=== PATIENT | female | born 1985 | race Caucasian/White ===

== ENCOUNTER 2018-02-19 00:59 | Inpatient (IN) | payer MEDICAID, OTHER ==
[2018-02-19] MEDS: SODIUM CHLORIDE 0.9% 1L BAG IV* (01:54)
[2018-02-19 02:16] LABS: ADD MAN DIFF? NO
[2018-02-19 02:22] LABS: BASOPHILS % 0.5 % (0.0-2.0); EOSINOPHILS # 0.1 10^3/ul (0.0-0.5); EOSINOPHILS % 1.4 % (0.0-7.0); HEMATOCRIT 35.4 % (37.0-47.0); HEMOGLOBIN 10.9 g/dl (12.0-16.0); LYMPHOCYTES # 2.8 10^3/ul (0.8-2.9); LYMPHOCYTES % 38.7 % (15.0-51.0); MEAN CORPUSCULAR HEMOGLOBIN 27.2 pg (29.0-33.0); MEAN CORPUSCULAR HGB CONC 30.8 g/dl (32.0-37.0); MEAN CORPUSCULAR VOLUME 88.3 fl (82.0-101.0); MEAN PLATELET VOLUME 8.8 fl (7.4-10.4); MONOCYTE # 0.6 10^3/ul (0.3-0.9); MONOCYTES % 7.8 % (0.0-11.0); NEUTROPHIL # 3.8 10^3/ul (1.6-7.5); NEUTROPHILS % 51.3 % (39.0-77.0); PLATELET COUNT 429 10^3/UL (140-415); RED BLOOD COUNT 4.01 10^6/ul (4.20-5.40); RED CELL DISTRIBUTION WIDTH 12.2 % (11.5-14.5)
[2018-02-19 02:22] LABS: WHITE BLOOD COUNT 7.3 10^3/ul (4.8-10.8)
[2018-02-19] MEDS: ONDANSETRON 4 MG INJ IV (02:25)
[2018-02-19] MEDS: morphine 4 MG/ML VIAL IV (02:25)
[2018-02-19 02:42] LABS: LACTIC ACID 0.7 mmol/L (0.5-2.0)
[2018-02-19 02:42] LABS: PROTIME 12.2 Sec (11.9-14.9)
[2018-02-19 02:43] LABS: ALANINE AMINOTRANSFERASE 18 IU/L (13-69); ALBUMIN 4.1 g/dl (3.3-4.9); ALBUMIN/GLOBULIN RATIO 1.05; ALKALINE PHOSPHATASE 93 IU/L (42-121); ANION GAP 14 (8-16); ASPARTATE AMINO TRANSFERASE 23 IU/L (15-46); BILIRUBIN,INDIRECT 0.2 mg/dl (0-1.1); BILIRUBIN,TOTAL 0.2 mg/dl (0.2-1.3); BLOOD UREA NITROGEN 12 mg/dl (7-20); CALCIUM 8.9 mg/dl (8.4-10.2); CARBON DIOXIDE 29 mmol/L (21-31); CHLORIDE 105 mmol/L (97-110); CREATININE 0.66 mg/dl (0.44-1.00); GLUCOSE 86 mg/dl (70-220); PARTIAL THROMBOPLASTIN TIME 30.1 Sec (25.0-35.0); POTASSIUM 3.8 mmol/L (3.5-5.1); SODIUM 144 mmol/L (135-144)
[2018-02-19 02:53] LABS: ADD UMIC YES; UR ASCORBIC ACID NEGATIVE (NEGATIVE); UR BILIRUBIN (Dip) NEGATIVE (NEGATIVE); UR BLOOD (Dip) 1+ mg/dL (NEGATIVE); UR CLARITY SLIGHTLY CLOUDY (CLEAR); UR COLOR YELLOW (YELLOW); UR GLUCOSE (Dip) NEGATIVE (NEGATIVE); UR KETONES (Dip) NEGATIVE (NEGATIVE); UR LEUKOCYTE ESTERASE (Dip) 3+ Leu/ul (NEGATIVE); UR MUCUS MODERATE /HPF (NONE SEEN); UR NITRITE (Dip) NEGATIVE (NEGATIVE); UR RBC 17 /HPF (0-5); UR SPECIFIC GRAVITY (Dip) 1.026 (1.003-1.030); UR SQUAMOUS EPITHELIAL CELL FEW /HPF (FEW); UR TOTAL PROTEIN (Dip) NEGATIVE (NEGATIVE); UR UROBILINOGEN (Dip) 2+ mg/dL (NEGATIVE); UR WBC 15 /HPF (0-5)
[2018-02-19 02:54] LABS: TROPONIN-I < 0.010 ng/ml (0.000-0.120)
[2018-02-19] MEDS: PIPER-TAZO 3.375 GM IV (PMX) 100 ML IVPB (04:04)
[2018-02-19] MEDS: HYDROmorphONE 1 MG/ML SYG IV (04:04)
[2018-02-19 05:04] LABS: LACTIC ACID 1.4 mmol/L (0.5-2.0)
[2018-02-19 06:23] LABS: LACTIC ACID 0.7 mmol/L (0.5-2.0)
[2018-02-19] MEDS: morphine 2 MG INJ IV (08:49)
[2018-02-19] MEDS ORDERED: HYDROCODONE/APAP (5/325) TAB PO (09:00)
[2018-02-19] MEDS ORDERED: VANCOMYCIN IV PER PHARMACY XX (09:00)
[2018-02-19] MEDS ORDERED: ONDANSETRON 4 MG INJ IV (09:00)
[2018-02-19] MEDS ORDERED: NACL 0.9% 3 ML SYG IV (09:00)
[2018-02-19] MEDS ORDERED: ACETAMINOPHEN 325 MG TAB PO (09:00)
[2018-02-19] MEDS ORDERED: CEFEPIME 1GM/50 ML (PMX) 50 ML IVPB (09:00)
[2018-02-19] MEDS: ENOXAPARIN 40 MG/0.4 ML SYG SC (09:00)
[2018-02-19] MEDS: HYDROCODONE/APAP (5/325) TAB PO ×3 (10:14→23:49)
[2018-02-19] MEDS: VANCOMYCIN 1.75 GM in SOD CHLORIDE 0.9% 500 ML IVPB (12:15)
[2018-02-19] MEDS: VANCOMYCIN 1 GM 250 ML IVPB (22:40)
[2018-02-20 06:02] LABS: ADD MAN DIFF? NO
[2018-02-20 06:14] LABS: BASOPHILS % 0.5 % (0.0-2.0); EOSINOPHILS # 0.1 10^3/ul (0.0-0.5); EOSINOPHILS % 2.5 % (0.0-7.0); HEMATOCRIT 32.9 % (37.0-47.0); HEMOGLOBIN 9.9 g/dl (12.0-16.0); LYMPHOCYTES # 3.7 10^3/ul (0.8-2.9); MEAN CORPUSCULAR HEMOGLOBIN 26.6 pg (29.0-33.0); MEAN CORPUSCULAR HGB CONC 30.1 g/dl (32.0-37.0); MEAN CORPUSCULAR VOLUME 88.4 fl (82.0-101.0); MEAN PLATELET VOLUME 9.2 fl (7.4-10.4); MONOCYTE # 0.4 10^3/ul (0.3-0.9); MONOCYTES % 7.5 % (0.0-11.0); NEUTROPHIL # 1.4 10^3/ul (1.6-7.5); NEUTROPHILS % 24.3 % (39.0-77.0); PLATELET COUNT 358 10^3/UL (140-415); RED BLOOD COUNT 3.72 10^6/ul (4.20-5.40); RED CELL DISTRIBUTION WIDTH 12.6 % (11.5-14.5)
[2018-02-20 06:14] LABS: WHITE BLOOD COUNT 5.6 10^3/ul (4.8-10.8)
[2018-02-20 06:56] LABS: IRON 26 ug/dl (35-150)
[2018-02-20] MEDS ORDERED: PROPOFOL 200 MG INJ (07:00)
[2018-02-20 07:01] LABS: ALANINE AMINOTRANSFERASE 26 IU/L (13-69); ALBUMIN 3.1 g/dl (3.3-4.9); ALKALINE PHOSPHATASE 70 IU/L (42-121); ANION GAP 6 (8-16); ASPARTATE AMINO TRANSFERASE 21 IU/L (15-46); BILIRUBIN,INDIRECT 0.2 mg/dl (0-1.1); BILIRUBIN,TOTAL 0.2 mg/dl (0.2-1.3); BLOOD UREA NITROGEN 12 mg/dl (7-20); CALCIUM 8.2 mg/dl (8.4-10.2); CARBON DIOXIDE 28 mmol/L (21-31); CHLORIDE 111 mmol/L (97-110); CREATININE 0.61 mg/dl (0.44-1.00); GLUCOSE 97 mg/dl (70-220); MAGNESIUM 1.8 mg/dl (1.7-2.5); POTASSIUM 4.2 mmol/L (3.5-5.1); SODIUM 141 mmol/L (135-144); TOTAL PROTEIN 6.2 g/dl (6.1-8.1)
[2018-02-20 07:05] LABS: % IRON SATURATION 7 % SAT (22-52); TOTAL IRON BINDING CAPACITY 357 ug/dl (241-421)
[2018-02-20 07:59] LABS: FERRITIN 7.8 ng/ml (6.2-137.0)
[2018-02-20] MEDS: ENOXAPARIN 40 MG/0.4 ML SYG SC (09:00)
[2018-02-20] MEDS: VANCOMYCIN 1 GM 250 ML IVPB (10:30)
[2018-02-20] MEDS: HYDROCODONE/APAP (5/325) TAB PO ×2 (10:36→22:28)
[2018-02-20] MEDS ORDERED: NAPROXEN 500 MG TAB PO (18:30)
[2018-02-20] MEDS ORDERED: PROPOFOL 20 ML (19:13)
[2018-02-20] MEDS ORDERED: METOCLOPRAMIDE 10 MG INJ (19:13)
[2018-02-20] MEDS ORDERED: ONDANSETRON 4 MG INJ (19:13)
[2018-02-20] MEDS ORDERED: MIDAZOLAM 1 MG/ML 2 ML INJ (19:13)
[2018-02-20] MEDS ORDERED: FENTAnyl 50 MCG/ML VIAL (19:13)
[2018-02-20] MEDS ORDERED: KETOROLAC 30 MG INJ (19:40)
[2018-02-20] MEDS: POLYMYXIN B 500000 UNIT INJ (19:44)
[2018-02-20] MEDS: BACITRACIN 50000 UNITS INJ IRR (19:45)
[2018-02-20] MEDS: POLYMYXIN/BACITRACIN 1L IRRIG IRR (19:45)
[2018-02-20] MEDS ORDERED: ONDANSETRON 4 MG INJ IV ×2 (20:00→20:30)
[2018-02-20] MEDS ORDERED: DIPHENHYDRAMINE 50 MG INJ IV (20:00)
[2018-02-20] MEDS ORDERED: HYDROmorphONE 1 MG/5 ML IV SYRINGE IV ×2 (20:00)
[2018-02-20] MEDS ORDERED: ZOLPIDEM 5 MG TAB PO (20:30)
[2018-02-20] MEDS: HYDROmorphONE 1 MG/5 ML IV SYRINGE IV (20:47)
[2018-02-20] MEDS: MEPERIDINE 25 MG INJ IV (20:47)
[2018-02-20] MEDS: FAMOTIDINE 20 MG INJ IV (22:24)
[2018-02-20] MEDS: FERROUS SULFATE (EC) 325 MG TAB PO (22:25)
[2018-02-20] MEDS: GABAPENTIN 100 MG CAP PO (22:25)
[2018-02-20] MEDS: KETOROLAC 30 MG INJ IV (22:29)
[2018-02-20 22:41] LABS: VANCOMYCIN,TROUGH 8.1 ug/ml (10.0-20.0)
[2018-02-21] MEDS: VANCOMYCIN 1.5 GM in SOD CHLORIDE 0.9% 250 ML IVPB ×2 (01:37→12:10)
[2018-02-21 06:15] LABS: ADD MAN DIFF? NO
[2018-02-21 06:18] LABS: BASOPHILS % 0.4 % (0.0-2.0); EOSINOPHILS # 0.2 10^3/ul (0.0-0.5); EOSINOPHILS % 2.4 % (0.0-7.0); HEMATOCRIT 31.4 % (37.0-47.0); HEMOGLOBIN 9.6 g/dl (12.0-16.0); LYMPHOCYTES # 3.7 10^3/ul (0.8-2.9); LYMPHOCYTES % 54.6 % (15.0-51.0); MEAN CORPUSCULAR HGB CONC 30.6 g/dl (32.0-37.0); MEAN CORPUSCULAR VOLUME 88.5 fl (82.0-101.0); MEAN PLATELET VOLUME 9.2 fl (7.4-10.4); MONOCYTE # 0.5 10^3/ul (0.3-0.9); MONOCYTES % 6.8 % (0.0-11.0); NEUTROPHIL # 2.4 10^3/ul (1.6-7.5); NEUTROPHILS % 35.5 % (39.0-77.0); PLATELET COUNT 376 10^3/UL (140-415); RED BLOOD COUNT 3.55 10^6/ul (4.20-5.40); RED CELL DISTRIBUTION WIDTH 12.3 % (11.5-14.5)
[2018-02-21 06:18] LABS: WHITE BLOOD COUNT 6.8 10^3/ul (4.8-10.8)
[2018-02-21 06:35] LABS: ANION GAP 7 (8-16); BLOOD UREA NITROGEN 12 mg/dl (7-20); CALCIUM 8.1 mg/dl (8.4-10.2); CARBON DIOXIDE 29 mmol/L (21-31); CHLORIDE 108 mmol/L (97-110); CREATININE 0.64 mg/dl (0.44-1.00); GLUCOSE 114 mg/dl (70-220); MAGNESIUM 1.9 mg/dl (1.7-2.5); PHOSPHORUS 4.4 mg/dl (2.5-4.9); POTASSIUM 3.9 mmol/L (3.5-5.1); SODIUM 140 mmol/L (135-144)
[2018-02-21] MEDS: HYDROCODONE/APAP (5/325) TAB PO ×2 (08:47→15:12)
[2018-02-21] MEDS: FERROUS SULFATE (EC) 325 MG TAB PO ×2 (08:49→20:52)
[2018-02-21] MEDS: GABAPENTIN 100 MG CAP PO ×3 (08:49→20:52)
[2018-02-21] MEDS: FAMOTIDINE 20 MG INJ IV ×2 (08:49→20:52)
[2018-02-21] MEDS: ENOXAPARIN 40 MG/0.4 ML SYG SC ×3 (08:50→12:14)
[2018-02-21] MEDS: TRIMETHOPRIM/SULFAMETHOX (DS) TAB PO (20:52)
[2018-02-22] MEDS: HYDROCODONE/APAP (5/325) TAB PO ×2 (07:20→16:50)
[2018-02-22] MEDS: TRIMETHOPRIM/SULFAMETHOX (DS) TAB PO (08:49)
[2018-02-22] MEDS: FAMOTIDINE 20 MG INJ IV (08:49)
[2018-02-22] MEDS: FERROUS SULFATE (EC) 325 MG TAB PO (08:49)
[2018-02-22] MEDS: KETOROLAC 30 MG INJ IV (08:49)
[2018-02-22] MEDS: GABAPENTIN 100 MG CAP PO ×2 (08:49→13:20)
[2018-02-22] MEDS: ENOXAPARIN 40 MG/0.4 ML SYG SC (08:51)
== END 2018-02-22 17:43 | disposition home or self-care (01) | DRG 857 ==
LOC: E/R 00:59 → PP2 06:16
PROC: 0JBP0ZZ Excision of Left Lower Leg Subcutaneous Tissue and Fascia, Open Approach (ICD-10-PCS; principal; 2018-02-20 13:00)
PROC: 0HXLXZZ Transfer Left Lower Leg Skin, External Approach (ICD-10-PCS; 2018-02-20 13:00)
DX: T81.4XXA Infection following a procedure, initial encounter (principal); L03.116 Cellulitis of left lower limb; S91.022S Laceration with foreign body, left ankle, sequela; S91.311D Laceration without foreign body, right foot, subsequent encounter; W34.00XS Accidental discharge from unspecified firearms or gun, sequela
CPT/HCPCS: 36415; 71045; 73610; 73718; 80048; 80053; 80202; 81001; 81025; 82728; 83540; 83605; 83735; 84100; 84484; 84703; 85025; 85610; 85730; 87040; 87070; 87075; 87086; 93005; 96374; 96375; 97161; 99285-25

== ENCOUNTER 2019-01-23 03:30 | Emergency (ER) | payer MEDICAID ==
[2019-01-23] MEDS: HYDROCODONE/APAP (5/325) TAB PO (06:33)
[2019-01-23] MEDS: LIDOCAINE 2% (MDV) 20 ML INJ INJ (06:33)
== END 2019-01-23 07:11 | disposition home or self-care (01) ==
LOC: FTE 03:30
DX: S20.161A Insect bite (nonvenomous) of breast, right breast, initial encounter (principal); L02.411 Cutaneous abscess of right axilla; J45.909 Unspecified asthma, uncomplicated; W57.XXXA Bitten or stung by nonvenomous insect and other nonvenomous arthropods, initial encounter; Y92.9 Unspecified place or not applicable
CPT/HCPCS: 10060; 99283-25